=== PATIENT | male | born 2000 | race African-American/Black ===

== ENCOUNTER 2023-12-23 18:35 | Emergency (ER) | payer OTHER ==
[~2023-12-23] VITALS: Ht 162.6 cm; Wt 46.4 kg
[2023-12-23 18:41] VITALS: BP 113/71; PULSE 69; TEMP 98.3; O2SAT 98
[2023-12-23 19:35] VITALS: BP 107/56; PULSE 58; RESP 14
[2023-12-23 19:48] LABS: APPEARANCE,URINE CLOUDY (CLEAR); BILIRUBIN,URINE 1+ (NEGATIVE); BLOOD, URINE 3+ (NEGATIVE); COLOR,URINE RED (YELLOW); LEUKOCYTE ESTERASE ,URINE NEGATIVE (NEGATIVE); NITRITE, URINE NEGATIVE (NEGATIVE); PH,URINE 7.5 (5.0-9.0); PROTEIN,URINE 3+ (NEGATIVE); UGLUCOSE NEGATIVE (NEGATIVE); UROBILINOGEN,URINE 0.2 EU/dL (0.2 - 1)
[2023-12-23 19:54] LABS: BACTERIA,URINE None Seen /HPF (None Seen); RBC,URINE TOO NUMEROUS TO COUN /HPF (0-5); SQUAMOUS EPITHELIAL CELL,UR None Seen /LPF (0-3 (FEW)); WBC,URINE NONE SEEN /HPF (0-5)
[2023-12-23 19:56] LABS: ICTOTEST NEGATIVE (NEGATIVE)
[2023-12-23 20:00] VITALS: O2SAT 99
[2023-12-23] MEDS ORDERED: DOXY-690 PO (23:16)
== END 2023-12-23 23:25 | disposition home or self-care (01) ==
LOC: MED 18:35
DX: R31.9 Hematuria, unspecified (principal); Z79.899 Other long term (current) drug therapy
CPT/HCPCS: 74176; 76870; 81001; 99284; Q0092; 87491

== ENCOUNTER 2023-12-28 17:57 | Emergency (ER) | payer OTHER ==
[~2023-12-28] VITALS: Ht 162.6 cm; Wt 45.4 kg
[~2023-12-28 17:57] MED LIST: DOXY-690 PO
[2023-12-28 17:59] VITALS: BP 98/71; RESP 20; TEMP 98.4; O2SAT 99
[2023-12-28 19:55] LABS: APPEARANCE,URINE CLOUDY (CLEAR); BILIRUBIN,URINE NEGATIVE (NEGATIVE); BLOOD, URINE 3+ (NEGATIVE); COLOR,URINE RED (YELLOW); LEUKOCYTE ESTERASE ,URINE 2+ (NEGATIVE); NITRITE, URINE POSITIVE (NEGATIVE); PROTEIN,URINE 3+ (NEGATIVE); UGLUCOSE 1+ (NEGATIVE)
[2023-12-28 20:13] LABS: RBC,URINE TOO NUMEROUS TO COUN /HPF (0-5)
[2023-12-28 20:14] LABS: BACTERIA,URINE None Seen /HPF (None Seen); SQUAMOUS EPITHELIAL CELL,UR None Seen /LPF (0-3 (FEW)); WBC,URINE NONE SEEN /HPF (0-5)
[2023-12-28 21:50] LABS: BASOPHILS # (AUTO) 0.1 K/uL (0.00-0.22); BASOPHILS % (AUTO) 1.2 % (0.0-2.0); EOSINOPHILS % (AUTO) 1.1 % (0.0-4.0); HEMATOCRIT 46.2 % (36-52); HEMOGLOBIN 15.9 g/dL (12.0-18.0); LYMPHOCYTES # (AUTO) 1.5 K/uL (2.0-11.5); LYMPHOCYTES % (AUTO) 34.6 % (20.5-51.1); MEAN CORPUSCULAR HEMOGLOBIN 33 pg (27-31); MEAN CORPUSCULAR HGB CONC 34 g/dL (33-37); MEAN CORPUSCULAR VOLUME 95.6 fL (80-94); MONOCYTES # (AUTO) 0.2 K/uL (0.8-1.0); NEUTROPHILS # (AUTO) 2.5 K/uL (1.8-7.7); NEUTROPHILS % (AUTO) 58.1 % (42.2-75.2); PLATELET COUNT (AUTO) 287 K/uL (140-450); RED BLOOD CELL COUNT(AUTO) 4.83 MIL/uL (4.20-6.10); RED CELL DISTRIBUTION WIDTH 12.8 % (11.6-13.7); WHITE BLOOD COUNT (AUTO) 4.3 K/uL (4.8-10.8)
[2023-12-28 21:58] LABS: ANION GAP 14.8 (8-16); CARBON DIOXIDE 24.1 mmol/L (21-32); POTASSIUM 3.9 mmol/L (3.5-5.1)
[2023-12-28 22:08] LABS: CALCIUM 9.3 mg/dL (8.5-10.1); CREATININE 0.8 mg/dL (0.6-1.3)
[2023-12-28] MEDS: NACL 0.9% 1,000 ML IV ONE (22:31)
[2023-12-28] MEDS ORDERED: CIPR500T4 PO (22:37)
[2023-12-29 02:20] VITALS: BP 106/74; PULSE 78; RESP 19; TEMP 98.1; O2SAT 98
== END 2023-12-29 02:20 | disposition home or self-care (01) ==
LOC: MED 17:57
DX: R31.9 Hematuria, unspecified (principal); R10.30 Lower abdominal pain, unspecified; Z79.899 Other long term (current) drug therapy; Z88.0 Allergy status to penicillin; Z88.1 Allergy status to other antibiotic agents
CPT/HCPCS: 36415; 74177; 80048; 81001; 85025; 87086; 96360; 99285; J7030; Q9967